=== PATIENT | male | born 1980 | race Native Hawaiian/Other Pacific Islander ===

== ENCOUNTER 2016-11-22 10:39 | Emergency (ER) | payer OTHER ==
[~2016-11-22] VITALS: Ht 205.7 cm; Wt 149.7 kg
[2016-11-22 10:50] VITALS: TEMP 98
[2016-11-22] MEDS ORDERED: PRINIVIL10 MG OR (11:00)
[2016-11-22 12:06] LABS: PLATELET COUNT 272 K/uL (142-355)
[2016-11-22 12:15] LABS: POTASSIUM 3.9 mmol/L (3.6-5.2); SODIUM 137 mmol/L (136-145)
[2016-11-22 15:26] VITALS: BP 164/111
== END 2016-11-22 15:30 | disposition home or self-care (01) ==
LOC: ED 10:39
PROVIDERS: Family Medicine
DX: L02.212 Cutaneous abscess of back [any part, except buttock and flank] (principal); T81.4XXA Infection following a procedure, initial encounter; I10 Essential (primary) hypertension
CPT/HCPCS: 36415; 80053; 81000; 82550; 83605; 85027; 85651; 87040; 96361; 96365; 96375; 99284; J1885; J3370